=== PATIENT | female | born 1980 | race Caucasian/White ===

== ENCOUNTER 2018-06-16 23:27 | Emergency (ER) | payer OTHER ==
[~2018-06-16] VITALS: Ht 167.6 cm; Wt 81.7 kg
[~2018-06-16 23:27] MED LIST: CONTRAVE ER 8-1 EACH PO; LEVOTHYROXINE500 MCG; METFORMIN HCL500 MG PO; PHENERGAN 25 MG25 M1 PO
[2018-06-16] MEDS ORDERED: TRAZODONE HCL50 MG PO (23:38)
[2018-06-16 23:46] LABS: HEMATOCRIT 41.7 % (37.0-47.0); HEMOGLOBIN 14.4 gm/dL (12.0-15.0); MCH 34.5 pg (26.0-34.0); MCHC 34.5 g/dL (28.0-37.0); MCV 99.9 fL (80.0-100.0); RBC 4.18 mil/uL (4.20-5.00); RDW 14.4 % (10.5-14.5); WBC 8.7 thou/uL (4.0-11.0)
[2018-06-16 23:59] LABS: ALBUMIN 2.9 g/dL (3.4-5.0); ANION GAP 13 mmol/L (7-16); BUN 8 mg/dL (7-18); CALCIUM 8.1 mg/dL (8.5-10.1); CHLORIDE 103 mmol/L (98-107); CO2 24 mmol/L (21-32); CREATININE 0.9 mg/dL (0.6-1.0); GLUCOSE 146 mg/dL (74-106); SGOT 21 U/L (15-37); SGPT 23 U/L (30-65); SODIUM 140 mmol/L (136-145); TOTAL BILIRUBIN 0.5 mg/dL (<0.1-1.0); TOTAL PROTEIN 6.3 g/dL (6.4-8.2); TROPONIN-I <0.06 ng/mL (<0.06)
[2018-06-17 00:01] LABS: POTASSIUM 2.9 mmol/L (3.5-5.1)
[2018-06-17 02:53] LABS: CALCIUM 7.7 mg/dL (8.5-10.1); CREATININE 0.8 mg/dL (0.6-1.0)
[2018-06-17 03:08] LABS: POTASSIUM 4.4 mmol/L (3.5-5.1)
[2018-06-17 03:27] VITALS: BP 120/77
--- NOTE | 2018-06-17 17:12 | EKG ---
[place] [address] [facility] [place] [address] ELECTROCARDIOGRAM REPORT Name: RASHEEDA PARRA Room [facility]: [id number] ������������������ Admission: 06/16/18 ������������������ Attend Phys: Discharge: 06/17/18 ������������������ Date of : 80 Report #: [id number] ����������������������������������������������������������������� [id number] THIS REPORT FOR: //name// [facility] ED Test Date: 2018-06-16 Test Time: 23:34:19 Pat Name: RASHEEDA PARRA Department: Room: Gender: F [employer]: : 1980 Requested By: Ashley Bowman Order Number: [id number] MD: Geoff Page Measurements Intervals [place] Rate: 96 P: 48 VT: 144 QRS: 4 QRSD: 92 T: 130 QT: 378 QTc: 478 Interpretive Statements Sinus rhythm Nonspecific ST and T wave abnormality Borderline prolonged QT interval No previous ECG available for comparison Electronically Signed On 06-17-2018 17:12:41 CDT by Geoff Page [email or web address] ��������������������������������������������� <ELECTRONICALLY SIGNED> ���������������������������������������� By: Geoff Page MD, [facility] ��������������������������������������������� 06/17/18 1712 [id number] Geoff Page MD, FACC /EPI
== END 2018-06-17 03:34 | disposition home or self-care (01) ==
LOC: ER 23:27
PROVIDERS: Student in an Organized Health Care Education/Training Program
DX: E87.6 Hypokalemia (principal); R55 Syncope and collapse; E28.2 Polycystic ovarian syndrome